=== PATIENT | female | born 1990 | race Two or more races ===

== ENCOUNTER 2023-08-08 01:13 | Emergency (ER) | payer BC, MEDICAID, OTHER ==
[~2023-08-08] VITALS: Ht 165.1 cm; Wt 108.9 kg
[2023-08-08 01:43] VITALS: TEMP 98.1
[2023-08-08] MEDS ORDERED: KETOROLAC TROMETHAMINE INJ 60 MG/2 ML VIAL IM ONE ×2 (01:58→02:00)
[2023-08-08] MEDS ORDERED: KETO10TA2 PO (03:44)
[2023-08-08] MEDS ORDERED: MORP15TA PO (03:44)
[2023-08-08 04:00] VITALS: BP 139/81; O2SAT 100
== END 2023-08-08 04:00 | disposition home or self-care (01) ==
LOC: ER 01:17
DX: M75.32 Calcific tendinitis of left shoulder (principal); Z88.8 Allergy status to other drugs, medicaments and biological substances
CPT/HCPCS: 99283; 96372; 73030; J1885